=== PATIENT | male | born 1950 | race Caucasian/White ===

== ENCOUNTER 2016-08-09 14:07 | Outpatient (CLI) | payer OTHER | END 2016-08-09 23:00 | disposition home or self-care (01) | LOC: RT SRH 14:07 | PROC: 4A02XM4 Measurement of Cardiac Total Activity, External Approach (ICD-10-PCS; principal; 2016-08-09) | DX: R06.00 Dyspnea, unspecified (principal); I49.40 Unspecified premature depolarization ==